=== PATIENT | female | born 1965 | race Caucasian/White ===

== ENCOUNTER 2017-01-08 18:16 | Emergency (ER) | payer BC ==
[~2017-01-08] VITALS: Ht 170.2 cm; Wt 68.7 kg
[2017-01-08 19:36] LABS: HEMATOCRIT 39.5 % (36.0-46.0); MCH 30.4 PG (29.0-34.0); MCHC 32.9 G/DL (30.0-36.0); MCV 92.5 FL (83-99); PLATELET COUNT 397 K/uL (156-360); RBC DIS.WIDTH-CV 13.1 % (11.8-14.6); RBC DIS.WIDTH-SD 44.7 % (39-53); RED BLOOD COUNT 4.27 M/uL (3.80-5.20); WHITE BLOOD COUNT 12.9 K/uL (4.1-10.2)
[2017-01-08 19:43] LABS: CHLORIDE 102 mEq/L (99-109); POTASSIUM 3.6 mEq/L (3.7-5.4); SODIUM 139 mEq/L (136-147)
[2017-01-08 19:46] LABS: GLUCOSE 104 mg/dL (70-99)
[2017-01-08 19:47] LABS: ANION GAP 11 MEQ/L (2-14); TOTAL BILIRUBIN 0.7 mg/dL (0.0-1.0)
[2017-01-08 19:49] LABS: ALKALINE PHOSPHATASE 65 IU/L (3-129); GFR ESTIMATE (CALCULATED) > 59 mL/min/
[2017-01-08 19:50] LABS: UREA NITROGEN (BUN) 16 mg/dL (9-23)
[2017-01-08 19:55] LABS: ADD MIUA? YES; BILIRUBIN NEGATIVE; BLOOD NEGATIVE; COLOR YELLOW ((YELLOW)); GLUCOSE (STRIP) NEGATIVE; KETONES 20; LEUKOCYTES SMALL; NITRITE NEGATIVE; PROTEIN (STRIP) 30; SPECIFIC GRAVITY 1.024 (1.000-1.030); UROBILINOGEN 0.2 MG/DL (0.2-1.0)
[2017-01-08 20:00] LABS: QUANTITATIVE HCG < 4.0 MIU/ML
[2017-01-08 20:43] LABS: EPITHELIAL CELLS NONE SEEN /HPF; MUCUS NONE SEEN /LPF; RED BLOOD CELLS 0-5 /HPF (0-5); WHITE BLOOD CELLS 0-5 /HPF (0-5)
[2017-01-08 20:44] LABS: BACTERIA 1+ /HPF; UCUL ADDED? NO
[2017-01-08] MEDS ORDERED: NORCO 5/3251 TABLET PO (22:53)
[2017-01-08 23:11] VITALS: BP 135/83
== END 2017-01-08 23:11 | disposition home or self-care (01) ==
LOC: EME 18:16 → EXP 18:16
DX: D25.9 Leiomyoma of uterus, unspecified (principal); R19.04 Left lower quadrant abdominal swelling, mass and lump; Z87.891 Personal history of nicotine dependence
CPT/HCPCS: 74176; 76856; 80053; 81003; 84702; 85027; 93975; 99281; 99283